=== PATIENT | female | born 1960 | race Caucasian/White ===

== ENCOUNTER → 2016-12-08 | Outpatient (CLI) | payer OTHER ==
[~2016-12-08] MED LIST: ESTR1 PO; LEVO.125 PO; OMEP20CA5 PO; TOPR25TA2 PO
[2016-12-08 13:17] LABS: BLOOD, URINE NEG (NEG); GLUCOSE,URINE NEG (NEG); KETONE, URINE NEG (NEG); MUCUS URINE FEW /lpf (OCC); NITRITE,URINE NEG (NEG); PH, URINE 7.5 (5.0-8.5); SQUAMOUS EPITHELIAL CELL URINE 4 /hpf (0-5); URINE COLOR YELLOW (YELLW/STRAW)
== END ==
LOC: PLAB 10:59
PROVIDERS: ATTEND Obstetrics & Gynecology
DX: N39.0 Urinary tract infection, site not specified (principal)
CPT/HCPCS: 81001; 87086

== ENCOUNTER 2017-01-28 09:55 | Emergency (ER) | payer OTHER ==
[~2017-01-28] VITALS: Ht 172.7 cm; Wt 96.0 kg
[2017-01-28 10:08] VITALS: BP 176/89; PULSE 76; RESP 16; TEMP 97.6; O2SAT 99
[2017-01-28] MEDS ORDERED: METO25TA6 PO (10:08)
[2017-01-28] MEDS ORDERED: LEVO.125 PO (10:08)
[2017-01-28] MEDS ORDERED: QUES4POW2 PO (10:08)
--- NOTE | 2017-01-28 10:20 | PD ---
HPI Chief Complaint: Musculoskeletal Complaint Time Seen by Provider: 10:17 Travel History International Travel<30 days: No Contact w/Intl Traveler<30days: No Traveled to known affect area: No History of Present Illness HPI This is a 56-year-old female who sustained an injury to her left ankle 3 days ago while vacationing [place]. She was walking on the curb and her ankle slipped off and she twisted her ankle. She's had moderate severity pain along the outside of the ankle, worse with walking, improved with rest ever since the injury. She went to an orthopedic clinic in [place] where they didn't x-ray and said she had an oblique fracture. She is placed in a walking boot and told her that she could've a repeat x-ray performed in 7-10 days. She feels like the bones or clicking in her foot and she feels like her pain is gone significantly worse. She did drive back from [place] but she says she took multiple stops to walk around and move and she doesn't feel like her calf is increasingly swollen. PFSH Past Medical History Cancer: No Cardiovascular Problems: Yes (coronary spasms) High Cholesterol: Yes Diabetes: No Diminished Hearing: No Gastrointestinal Disorders: Yes (REFLUX) Glaucoma: No Hepatitis: No Hiatal Hernia: No Hypertension: No Thyroid Disease: Yes Influenza Vaccination: Yes Past Surgical History Gynecologic Surgery: Yes (right breast lumpectomy) Hysterectomy: Yes Pacemaker: No Other Surgery: Yes (3 CLIPS IN RIGHT BREAST) Social History Alcohol Use: No Tobacco Use: No Substance Use: No Allergies-Medications (Allergen,Severity, Reaction): Coded Allergies: No Known Allergies (Verified , 01/28/17) Reported Meds & Prescriptions Reported Meds & Active Scripts Active Reported Questran (Cholestyramine) 4 Gm/Dose Powd 2 Gm PO BID 1 level scoopful of powder contains 4 grams of cholestyramine. Metoprolol Succinate ER 24 HR (Metoprolol Succinate) 25 Mg Tab 25 Mg PO DAILY Synthroid (Levothyroxine Sodium) 125 Mcg Tab 125 Mcg PO DAILY Review of Systems Except as stated in HPI: all other systems reviewed are Neg Physical Exam Narrative GENERAL: Well-appearing, no acute distress, nontoxic SKIN: Ecchymoses and swelling over the left lateral malleolus. HEAD: Atraumatic. Normocephalic. ENT: No nasal bleeding or discharge. Moist mucous membranes MUSCULOSKELETAL: No obvious deformities. No clubbing. No cyanosis. No edema. NEUROLOGICAL: Awake and alert. No obvious cranial nerve deficits. 5/5 strength in the bilateral lower extremities. Sensation is grossly intact in the foot VASCULAR: 2+ d.p. pulse in the left foot with normal capillary refill. PSYCHIATRIC: Appropriate mood and affect; insight and judgment normal. Data Data Last Documented VS Vital Signs Date Time Temp Pulse Resp B/P Pulse Ox O2 Delivery O2 Flow Rate FiO2 01/28/17 10:08 97.6 76 16 176/89 99 Orders Ankle, Complete ([id number]) (01/28/17 ) [facility] Medical Decision Making Medical Screen Exam Complete: Yes Emergency Medical Condition: Yes Interpretation(s) Afebrile, no tachycardia, hypertensive Last 24 hours Impressions Ankle X-Ray 01/28/17 0000 Signed Impressions: Service Date/Time: Saturday, January 28, 2017 10:26 - CONCLUSION: Nondisplaced fracture through the distal left fibular shaft with associated soft tissue swelling. Otherwise intact ankle Xavier Martinez MD Differential Diagnosis Fibula fracture, tibia fracture, fracture malunion, fracture displacement Narrative Course This is a 56-year-old female who presents to the emergency department having been using a walking boot ever since she sustained a fibular fracture 3 days ago. She says she feels like the fractures clicking in the boot is making her more uncomfortable. X-ray was obtained which demonstrates no displacement of the fracture. I told her I still think she could weight-bear but for comfort we will provide her with crutches and we will splint the leg and see if she tolerates that better than the boot. Patient is appropriate for outpatient follow up with orthopedics. Diagnosis Primary Impression: Fractured lateral malleolus Qualified Code: S82.65XA - Closed nondisplaced fracture of lateral malleolus of left fibula, initial encounter Patient Instructions: General Instructions Additional Instructions: If you develop severe pain, numbness, or coolness in the leg return to the emergency department. Follow-up with orthopedics as soon as possible. Med/Other Pt SpecificInfo: No Change to Meds Disposition: 01 DISCHARGE HOME Condition: Stable Bernie Lu MD Jan 28, 2017 10:20
--- NOTE | 2017-01-28 11:19 | RADRPT ---
EXAM DATE/TIME: 01/28/2017 10:26 [facility] COMPARISON: No previous studies available for comparison. INDICATIONS : Left ankle injury 3 days ago, x[place] fracture fibula . Increased swelling and discoloration. MEDICAL HISTORY : None. SURGICAL HISTORY : None. ENCOUNTER: Initial ACUITY: 3 days PAIN SCORE: 8/10 LOCATION: Left lateral ankle FINDINGS: Three view exam was performed of the left ankle. A nondisplaced fracture is identified in the distal fibular shaft. There is overlying soft tissue swelling. Ankle joint is otherwise intact. Ankle mortis e is intact. CONCLUSION: Nondisplaced fracture through the distal left fibular shaft with associated soft tissue swelling. Otherwise intact ankle Xavier Martinez MD on January 28, 2017 at 11:17 Board Certified Radiologist. This report was verified electronically.
== END 2017-01-28 12:51 | disposition home or self-care (01) ==
LOC: PHED 09:55
DX: S82.65XA Nondisplaced fracture of lateral malleolus of left fibula, initial encounter for closed fracture (principal); W18.49XA Other slipping, tripping and stumbling without falling, initial encounter; Y93.01 Activity, walking, marching and hiking
CPT/HCPCS: 29515; 73610; 99283; E0113

== ENCOUNTER → 2017-03-23 | Outpatient (CLI) | payer OTHER ==
[~2017-03-23] MED LIST changes: -ESTR1 PO; +METO25TA6 PO; -OMEP20CA5 PO; +QUES4POW2 PO; -TOPR25TA2 PO
[2017-03-23 13:28] LABS: AUTOMATED NEUTROPHIL # 3.2 TH/MM3 (1.8-7.7); BASOPHIL % 0.8 % (0.0-2.0); EOSINOPHIL # 0.2 TH/MM3 (0-0.4); EOSINOPHIL % 3.9 % (0.0-4.0); HEMATOCRIT 44.2 % (35.0-46.0); HEMO FLAGS DIFF FINAL; LYMPH % 23.9 % (9.0-44.0); LYMPHOCYTE # 1.3 TH/MM3 (1.0-4.8); MEAN CELL VOLUME 94.1 FL (80.0-100.0); MEAN CORPUSCULAR HEMOGLOBIN 31.5 PG (27.0-34.0); MEAN CORPUSCULAR HGB CONC 33.5 % (32.0-36.0); MONO % 11.1 % (0.0-8.0); NEUT % 60.3 % (16.0-70.0); PLATELET COUNT 213 TH/MM3 (150-450); RED BLOOD COUNT 4.69 MIL/MM3 (4.00-5.30); RED CELL DISTRIBUTION WIDTH 13.3 % (11.6-17.2); WHITE BLOOD COUNT 5.4 TH/MM3 (4.0-11.0)
[2017-03-23 13:29] LABS: ANION GAP 7 MEQ/L (5-15); AST (GOT) 50 U/L (15-37); BICARBONATE 25.8 MEQ/L (21.0-32.0); BLOOD UREA NITROGEN 16 MG/DL (7-18); CHLORIDE 107 MEQ/L (98-107); POTASSIUM 3.7 MEQ/L (3.5-5.1); SODIUM (NA) 140 MEQ/L (136-145)
[2017-03-23 13:32] LABS: ALKALINE PHOSPHATASE 85 U/L (45-117); GLOMERULAR FILTRATION RATE 80 ML/MIN (>89); GLUCOSE,FASTING 102 MG/DL (74-99)
[2017-03-23 13:39] LABS: ALT (GPT) 74 U/L (10-53); HDL CHOLESTEROL 47.4 MG/DL (40.0-60.0); LDL CHOLESTEROL 152 MG/DL (0-99); TOTAL BILIRUBIN ADULT 0.6 MG/DL (0.2-1.0)
== END ==
LOC: PLAB 07:08
PROVIDERS: ATTEND Family Medicine
DX: K76.89 Other specified diseases of liver (principal); E03.9 Hypothyroidism, unspecified; R79.9 Abnormal finding of blood chemistry, unspecified; E78.2 Mixed hyperlipidemia
CPT/HCPCS: 36415; 80053; 80061; 84439; 84443; 85025